=== PATIENT | male | born 1970 | race Caucasian/White ===

== ENCOUNTER 2023-12-06 14:12 | Emergency (ER) | payer MEDICAID ==
[~2023-12-06] VITALS: Ht 157.5 cm; Wt 92.0 kg
[2023-12-06 14:17] VITALS: BP 137/93; PULSE 64; TEMP 98.3; O2SAT 100
[2023-12-06 16:38] LABS: BASOPHILS % 0.5 % (0.0-2.0); EOSINOPHILS % 1.5 % (0.0-5.0); HEMATOCRIT. 46.7 % (42.0-52.0); HEMOGLOBIN. 16.5 g/dL (14.0-18.0); LYMPHOCYTES % 26.9 % (20.0-50.0); MEAN CORPUSCULAR HEMOGLOBIN 32.3 pg (28.0-32.0); MEAN CORPUSCULAR HGB CONC 35.3 g/dL (31.0-37.0); MEAN CORPUSCULAR VOLUME 91.6 fL (80.0-94.0); MEAN PLATELET VOLUME 8.4 fl (7.4-10.4); MONOCYTES % 6.5 % (2.0-8.0); NEUTROPHILS % 64.6 % (40.0-76.0); PLATELET 268 x1000/uL (130-400); RED CELL DISTRIBUTION WIDTH 13.1 % (11.6-14.6); WHITE BLOOD COUNT 7.2 x1000/uL (4.5-11.0)
[2023-12-06 16:40] LABS: CLARITY URINE CLEAR (CLEAR); COLOR URINE YELLOW (YELLOW); GLUCOSE URINE NEGATIVE (NEGATIVE); KETONES URINE NEGATIVE (NEGATIVE); LEUKOCYTE ESTERASE URINE NEGATIVE (NEGATIVE); NITRITE URINE NEGATIVE (NEGATIVE); OCCULT BLOOD URINE NEGATIVE (NEGATIVE); PH URINE 6.5 (4.5-8.0); PROTEIN URINE NEGATIVE (NEGATIVE); SPECIFIC GRAVITY URINE 1.022 (1.005-1.030)
[2023-12-06 16:47] LABS: CHLORIDE 103 mEq/L (98-107); POTASSIUM 4.3 mEq/L (3.5-5.1); SODIUM 137 mEq/L (136-145)
[2023-12-06 16:48] LABS: CARBON DIOXIDE 29 mEq/L (21-32)
[2023-12-06 16:49] LABS: CALCIUM 9.9 mg/dL (8.7-10.4)
[2023-12-06 16:53] LABS: CREATININE 0.9 mg/dL (0.6-1.3); GLUCOSE 138 mg/dL (70-105)
[2023-12-06 16:54] LABS: UREA NITROGEN BLOOD 11 mg/dL (9-23)
[2023-12-06 16:55] LABS: ALANINE AMINOTRANSFERASE 17 IU/L (10-49); ALBUMIN 4.7 g/dL (3.2-4.8); ASPARTATE AMINOTRANSFERASE 26 IU/L (<34)
[2023-12-06 16:56] LABS: BILIRUBIN DIRECT 0.1 mg/dL (<=3.0); BILIRUBIN TOTAL 0.5 mg/dL (0.1-1.0); PROTEIN TOTAL 8.1 g/dL (6.0-8.3)
[2023-12-06] MEDS ORDERED: ENAL-79 MT (17:56)
[2023-12-06] MEDS ORDERED: LINA5TAB MT (17:56)
[2023-12-06] MEDS ORDERED: METH-653 MT (17:56)
[2023-12-06] MEDS ORDERED: METF-416 MT (17:56)
[2023-12-06] MEDS ORDERED: IBUP-2029 MT (17:56)
== END 2023-12-06 19:12 | disposition home or self-care (01) ==
LOC: ER 14:12
DX: S39.012A Strain of muscle, fascia and tendon of lower back, initial encounter (principal); I10 Essential (primary) hypertension; E11.9 Type 2 diabetes mellitus without complications; Z90.49 Acquired absence of other specified parts of digestive tract; Z79.899 Other long term (current) drug therapy; X58.XXXA Exposure to other specified factors, initial encounter; Y93.89 Activity, other specified; Y92.89 Other specified places as the place of occurrence of the external cause; Y99.8 Other external cause status
CPT/HCPCS: 36415; 80048; 80076; 81003; 85025; 99283